=== PATIENT | male | born 1955 ===

== ENCOUNTER 2024-01-28 09:58 | Inpatient (IN) | payer OTHER ==
[~2024-01-28] VITALS: Ht 165.1 cm; Wt 127.0 kg
[2024-01-28] MEDS ORDERED: METFORMIN HCL500 M3 PO (14:15)
[2024-01-28] MEDS ORDERED: PEPCID AC20 MG PO (14:15)
[2024-01-28] MEDS ORDERED: TAMS0.4C PO (14:15)
[2024-01-28] MEDS ORDERED: ATORVASTATIN CA20 MG PO (14:16)
[2024-01-28] MEDS ORDERED: COZAAR50 MG PO (14:16)
[2024-02-04] MEDS ORDERED: METRONIDAZOLE/SODIUM CHLORIDE 500 MG/100 ML PIGGYBACK IV ONE (11:15)
[2024-02-04] MEDS ORDERED: CEFTRIAXONE SODIUM 2,000 MG VIAL IV ONE (11:15)
[2024-02-04] MEDS ORDERED: HYOSCYAMINE SULFATE 0.125 MG TAB.SUBL SL SCH (13:14)
[2024-02-04] MEDS ORDERED: POLYETHYLENE GLYCOL 3350 17 GM BLIST.PACK PO SCH ×2 (13:14→17:00)
[2024-02-04] MEDS ORDERED: FAMOTIDINE/PF 20 MG/2 ML VIAL IV PUSH SCH (13:14)
[2024-02-04] MEDS ORDERED: MORPHINE SULFATE 4 MG/ML CARTRIDGE IV PRN (13:15)
[2024-02-04] MEDS ORDERED: DEXTROSE 50 % IN WATER 0.5 G/ML DISP.SYRIN IV PRN ×2 (13:15→16:30)
[2024-02-04] MEDS ORDERED: ONDANSETRON HCL 2 MG/ML VIAL IV PRN (13:15)
[2024-02-04] MEDS ORDERED: RINGERS SOLUTION,LACTATED 1,000 ML IV SCH (13:15)
[2024-02-04] MEDS ORDERED: GABAPENTIN 300 MG CAPSULE PO SCH (13:15)
[2024-02-04] MEDS ORDERED: OxyCODONE HCL 5 MG TABLET (ROXICODONE) PO PRN (13:15)
[2024-02-04] MEDS ORDERED: CELECOXIB 200 MG CAPSULE PO SCH (13:15)
[2024-02-04] MEDS ORDERED: SUGAMMADEX SODIUM 200 MG/2 ML VIAL IV ONE (13:30)
[2024-02-04] MEDS ORDERED: ACETAMINOPHEN 500 MG GEL..CAP PO SCH (14:00)
[2024-02-04 14:49] LABS: HEMATOCRIT 39.7 % (39.0-48.0); HEMOGLOBIN 13.2 g/dL (13-16.00); MEAN CELL VOLUME 89.8 fL (80.0-100.00); MEAN CORPUSCULAR HEMOGLOBIN 29.9 pg (27.00-32.0); MEAN CORPUSCULAR HGB CONC 33.3 g/dl (32.0-36.0); PLATELET COUNT 160 K/uL (150-450); RED BLOOD COUNT 4.42 M/uL (4.00-6.00); RED CELL DISTRIBUTION WIDTH 14.6 % (11.5-14.5)
[2024-02-04 15:28] LABS: ALBUMIN 3.3 gm/dL (3.4-5.0); CALCIUM 8.1 mg/dL (8.5-10.1); CREATININE SERUM 1.06 mg/dL (0.70-1.30); GFR 69.27; MAGNESIUM 1.9 mg/dL (1.8-2.4); PHOSPHOROUS 3.8 mg/dL (2.5-4.9); POTASSIUM 4.07 mEq/L (3.5-5.1)
[2024-02-04] MEDS ORDERED: ENALAPRILAT DIHYDRATE 1.25 MG/ML VIAL IV ONE (16:22)
[2024-02-04] MEDS ORDERED: ENALAPRILAT DIHYDRATE 1.25 MG/ML VIAL IV PRN (16:30)
[2024-02-04] MEDS ORDERED: INSULIN LISPRO 1,000 UNIT/10 ML UNITS SUBCUTANEO PRN (16:30)
[2024-02-04 16:57] LABS: ABG PH 7.348 (7.35-7.45); ABG PO2 67.5 mmHg (80-100); ABG pCO2 43.8 mmHg (35-45); SaO2 91.9 %
[2024-02-04 16:58] LABS: BASE EXCESS -2.2 mmol/l; BICARBONATE 23.5 mmol/l (23-25); Tco2 24.9 mmol/l; allen test SATISFACTORY; o2 21 %; puncture site RADIAL LEFT
[2024-02-04] MEDS ORDERED: TAMSULOSIN HCL 0.4 MG CAP PO SCH (21:00)
[2024-02-05 06:44] LABS: HEMATOCRIT 37.8 % (39.0-48.0); HEMOGLOBIN 12.8 g/dL (13-16.00); MEAN CORPUSCULAR HEMOGLOBIN 30.2 pg (27.00-32.0); MEAN CORPUSCULAR HGB CONC 33.9 g/dl (32.0-36.0); PLATELET COUNT 154 K/uL (150-450); RED BLOOD COUNT 4.24 M/uL (4.00-6.00); RED CELL DISTRIBUTION WIDTH 14.6 % (11.5-14.5)
[2024-02-05 07:07] LABS: CREATININE SERUM 0.96 mg/dL (0.70-1.30); GFR 77.66; MAGNESIUM 1.9 mg/dL (1.8-2.4); PHOSPHOROUS 3.6 mg/dL (2.5-4.9); POTASSIUM 4.15 mEq/L (3.5-5.1)
[2024-02-05] MEDS ORDERED: LOSARTAN POTASSIUM 50 MG TABLET PO SCH (09:00)
[2024-02-05] MEDS ORDERED: ATORVASTATIN CALCIUM 20 MG TABLET PO SCH (17:00)
[2024-02-05] MEDS ORDERED: ENOXAPARIN SODIUM 40 MG/0.4 ML SYRINGE SUBCUTANEO SCH (17:00)
[2024-02-06 06:37] LABS: HEMATOCRIT 36.3 % (39.0-48.0); MEAN CELL VOLUME 89.9 fL (80.0-100.00); MEAN CORPUSCULAR HEMOGLOBIN 29.7 pg (27.00-32.0); PLATELET COUNT 137 K/uL (150-450); RED BLOOD COUNT 4.04 M/uL (4.00-6.00); RED CELL DISTRIBUTION WIDTH 14.4 % (11.5-14.5)
[2024-02-06 07:17] LABS: CALCIUM 8.3 mg/dL (8.5-10.1); CREATININE SERUM 0.91 mg/dL (0.70-1.30); GFR 82.61; MAGNESIUM 2.1 mg/dL (1.8-2.4); POTASSIUM 3.95 mEq/L (3.5-5.1)
[2024-02-06 07:51] LABS: PHOSPHOROUS 1.8 mg/dL (2.5-4.9)
[2024-02-06] MEDS ORDERED: POTASSIUM PHOS,M-BASIC-D-BASIC 3 MM/ML VIAL IV NR (08:30)
[2024-02-06] MEDS ORDERED: ENOXAPARIN SODIUM 40 MG/0.4 ML SYRINGE SUBCUTANEO SCH (09:00)
[2024-02-06] MEDS ORDERED: PANTOPRAZOLE SODIUM 40 MG/VIAL VIAL IV STA (11:19)
[2024-02-06] MEDS ORDERED: PANTOPRAZOLE SODIUM 80 MG in 0.9 % SODIUM CHLORIDE 100 ML IV SCH (13:46)
[2024-02-06] MEDS ORDERED: AMINO ACIDS 4.25 %/DEXTROSE 5% 1,000 ML PERIFERAL SCH (17:00)
[2024-02-07] MEDS ORDERED: PHENOL 177 ML BOTTLE MM STA (06:58)
[2024-02-07 07:05] LABS: HEMATOCRIT 34.9 % (39.0-48.0); HEMOGLOBIN 11.7 g/dL (13-16.00); MEAN CELL VOLUME 88.8 fL (80.0-100.00); MEAN CORPUSCULAR HEMOGLOBIN 29.8 pg (27.00-32.0); MEAN CORPUSCULAR HGB CONC 33.6 g/dl (32.0-36.0); PLATELET COUNT 147 K/uL (150-450); RED BLOOD COUNT 3.93 M/uL (4.00-6.00); RED CELL DISTRIBUTION WIDTH 14.5 % (11.5-14.5)
[2024-02-07 07:16] LABS: CALCIUM 8.3 mg/dL (8.5-10.1); CREATININE SERUM 0.75 mg/dL (0.70-1.30); GFR 103.26; MAGNESIUM 1.9 mg/dL (1.8-2.4); POTASSIUM 4.37 mEq/L (3.5-5.1)
[2024-02-07 07:48] LABS: PHOSPHOROUS 1.8 mg/dL (2.5-4.9)
[2024-02-07 10:02] LABS: CALCIUM 8.3 mg/dL (8.5-10.1); CHOL HDL RATIO 2.4 (0-5.0); CREATININE SERUM 0.84 mg/dL (0.70-1.30); GFR 90.6; POTASSIUM 4.02 mEq/L (3.5-5.1)
[2024-02-07] MEDS ORDERED: DILTIAZEM HCL 25 MG/5 ML VIAL IV STA (11:46)
[2024-02-07] MEDS ORDERED: DILTIAZEM HCL 125 MG in 0.9 % SODIUM CHLORIDE 100 ML IV SCH (12:00)
[2024-02-07] MEDS ORDERED: POTASSIUM PHOS,M-BASIC-D-BASIC 3 MM/ML VIAL IV ONE (12:00)
[2024-02-07] MEDS ORDERED: AA 4.25%/CALCIUM/LYTES/DEX 10% 1,000 ML CENTRAL SCH (17:00)
[2024-02-08 07:56] LABS: HEMATOCRIT 30.3 % (39.0-48.0); HEMOGLOBIN 10.5 g/dL (13-16.00); MEAN CELL VOLUME 87.6 fL (80.0-100.00); MEAN CORPUSCULAR HEMOGLOBIN 30.4 pg (27.00-32.0); MEAN CORPUSCULAR HGB CONC 34.6 g/dl (32.0-36.0); PLATELET COUNT 178 K/uL (150-450); RED BLOOD COUNT 3.46 M/uL (4.00-6.00); RED CELL DISTRIBUTION WIDTH 14.8 % (11.5-14.5)
[2024-02-08 08:20] LABS: CALCIUM 8.3 mg/dL (8.5-10.1); CREATININE SERUM 0.76 mg/dL (0.70-1.30); GFR 101.69; MAGNESIUM 2.1 mg/dL (1.8-2.4); POTASSIUM 3.65 mEq/L (3.5-5.1); TSH 0.45 uIU/mL (0.358-3.74)
[2024-02-08 09:37] LABS: PHOSPHOROUS 1.7 mg/dL (2.5-4.9)
[2024-02-08] MEDS ORDERED: POTASSIUM PHOS,M-BASIC-D-BASIC 3 MM/ML VIAL IV ONE (13:00)
[2024-02-08] MEDS ORDERED: METOPROLOL TARTRATE 25 MG TABLET PO SCH (17:00)
[2024-02-09] MEDS ORDERED: SODIUM CL 0.9% 100 ML IV.SOLN IV ONE (01:11)
[2024-02-09] MEDS ORDERED: PANTOPRAZOLE SODIUM 40 MG/VIAL VIAL ONE (01:15)
[2024-02-09] MEDS ORDERED: POTASSIUM PHOS,M-BASIC-D-BASIC 18 MM in 0.9 % SODIUM CHLORIDE 250 ML IV ONE (17:00)
[2024-02-10 05:36] LABS: HEMATOCRIT 29.2 % (39.0-48.0); HEMOGLOBIN 10.1 g/dL (13-16.00); MEAN CELL VOLUME 87.6 fL (80.0-100.00); MEAN CORPUSCULAR HEMOGLOBIN 30.2 pg (27.00-32.0); MEAN CORPUSCULAR HGB CONC 34.5 g/dl (32.0-36.0); PLATELET COUNT 184 K/uL (150-450); RED BLOOD COUNT 3.34 M/uL (4.00-6.00); RED CELL DISTRIBUTION WIDTH 14.1 % (11.5-14.5)
[2024-02-10 05:50] LABS: INR 1.03; PARTIAL THROMBOPLASTIN TIME 31.4 SECONDS (22.0-34.0); PROTHROMBIN TIME 10.8 SECONDS (9.0-11.5)
[2024-02-10 05:52] LABS: CALCIUM 8.2 mg/dL (8.5-10.1); CREATININE SERUM 0.73 mg/dL (0.70-1.30); GFR 106.53; MAGNESIUM 1.9 mg/dL (1.8-2.4); PHOSPHOROUS 4.4 mg/dL (2.5-4.9); POTASSIUM 3.95 mEq/L (3.5-5.1)
[2024-02-10 05:56] LABS: ALBUMIN 2.4 gm/dL (3.4-5.0); BILIRUBIN TOTAL 0.54 mg/dL (0.3-1.2); BILIRUBIN,CONJUGATED 0.2 mg/dL (0.0-0.2); BILIRUBIN,UNCONJUGATED 0.34 mg/dL (0.0-0.6); CALCIUM 8.2 mg/dL (8.5-10.1); CHOL HDL RATIO 3.8 (0-5.0); CREATININE SERUM 0.79 mg/dL (0.70-1.30); GFR 97.25; GLOBULINA 3.2 G/DL (2.4-3.5); POTASSIUM 3.84 mEq/L (3.5-5.1); TOTAL PROTEIN 5.6 gm/dL (6.4-8.2)
[2024-02-10 10:39] LABS: UREA CLEARANCE 62.8 ML/MIN
[2024-02-10] MEDS ORDERED: PANTOPRAZOLE SODIUM 40 MG TABLET.DR PO SCH (11:05)
[2024-02-10] MEDS ORDERED: LEVALBUTEROL HCL 0.63 MG/3 ML SOLUTION IH STA (14:15)
[2024-02-10] MEDS ORDERED: LEVALBUTEROL HCL 0.63 MG/3 ML SOLUTION IH SCH ×2 (17:00→21:00)
[2024-02-11] MEDS ORDERED: CELEBREX200MG PO (10:50)
[2024-02-11] MEDS ORDERED: MIRALAX17 GM PO (10:51)
[2024-02-11] MEDS ORDERED: INTESTINEX680 M1 PO (10:51)
[2024-02-11] MEDS ORDERED: PROTONIX40 MG PO (10:52)
== END 2024-02-11 16:07 | disposition home or self-care (01) | DRG 329 ==
LOC: O/R 02-04 05:10 → SURH 02-04 11:15 → SURG 02-04 15:22 → SURH 02-04 18:15 → SURG 02-11 16:07
PROVIDERS: Internal Medicine Geriatric Medicine; Specialist; ADMIT Colon & Rectal Surgery; ATTEND Colon & Rectal Surgery
PROC: 0DBP4ZZ Excision of Rectum, Percutaneous Endoscopic Approach (ICD-10-PCS; 2024-02-04)
PROC: 04L Lower Arteries, Occlusion (ICD-10-PCS; 2024-02-04)
PROC: 0TN74ZZ Release Left Ureter, Percutaneous Endoscopic Approach (ICD-10-PCS; 2024-02-04)
PROC: 0DJD8ZZ Inspection of Lower Intestinal Tract, Via Natural or Artificial Opening Endoscopic (ICD-10-PCS; 2024-02-04)
PROC: 02HV33Z Insertion of Infusion Device into Superior Vena Cava, Percutaneous Approach (ICD-10-PCS; 2024-02-04)
PROC: 4A12X4Z Monitoring of Cardiac Electrical Activity, External Approach (ICD-10-PCS; 2024-02-04)
PROC: 0DTN4ZZ Resection of Sigmoid Colon, Percutaneous Endoscopic Approach (ICD-10-PCS; principal; 2024-02-04 18:15)
PROC: B24BZZZ Ultrasonography of Heart with Aorta (ICD-10-PCS; 2024-02-07)
DX: K57.32 Diverticulitis of large intestine without perforation or abscess without bleeding (principal); K68.2 Retroperitoneal fibrosis; K91.89 Other postprocedural complications and disorders of digestive system; K56.7 Ileus, unspecified; I48.20 Chronic atrial fibrillation, unspecified; K60.5 Anorectal fistula; K66.0 Peritoneal adhesions (postprocedural) (postinfection); I10 Essential (primary) hypertension; G47.30 Sleep apnea, unspecified; D64.9 Anemia, unspecified